=== PATIENT | female | born 1950 | race Caucasian/White ===

== ENCOUNTER 2019-03-16 15:35 | Inpatient (IN) | payer OTHER ==
[~2019-03-16] VITALS: Ht 185.4 cm; Wt 68.0 kg
[2019-03-16 17:56] VITALS: BP 122/50
[2019-03-16 19:59] VITALS: BP 116/53
[2019-03-17 03:25] VITALS: BP 103/40
--- NOTE | 2019-03-17 06:06 | NUR ---
PATIENT ARRIVED ON DAYS FROM ED. PATIENT ALERT AND ORIENTED X4. BEDREST. PATIENT HS MULTIPLE PRESSURE WOUNDS. PICTURES TAKEN BY DAYS. DENIES PAIN. SLEPT OFF AND ON DURING NIGHT.
[2019-03-17 06:33] LABS: HEMATOCRIT 20.6 % (37.0-47.0); MCH 30.9 pg (26.0-34.0); MCHC 34.1 g/dL (28.0-37.0); MCV 90.8 fL (80.0-100.0); RBC 2.27 mil/uL (4.20-5.00); RDW 16.7 % (10.5-14.5); WBC 5.3 thou/uL (4.0-11.0)
[2019-03-17 06:44] LABS: CALCIUM 8.2 mg/dL (8.5-10.1); CREATININE 0.5 mg/dL (0.6-1.0); POTASSIUM 3.5 mmol/L (3.5-5.1)
[2019-03-17 07:30] VITALS: BP 126/52
[2019-03-17 16:19] VITALS: BP 128/58
--- NOTE | 2019-03-17 16:34 | NUR ---
ASSUMED PATIENT CARE AT 0700. A/0 X4. PLEASEANT. C/O COCCYX PAIN. DRESSING CHANGED PER ORDER. ASSISTED PATINE TURN. LOW AIR LOSS PUMP ORDER. CALLED [facility] THERE TIMES TO UPDATE HOME MEDS BUT NO ONE ANSWER THE PHONE. VSS. PATIENT ABLE TO FINISH 50% MEAL EACH TIME. SLOWLY TOWARDS POC GOALS.
[2019-03-17 19:20] VITALS: BP 114/50
--- NOTE | 2019-03-17 22:04 | NUR ---
PATIENT IS REFUSING LOW AIR FLOW MATTRESS PUMP DUE TO PROBLEMS WITH COMFORT WITH THE BED DURING PAST STAYS IN HOSPITAL. PATIENT STATES THAT SHE "CAN'T GET COMFORTABLE" IN THE BED WHEN IT IS OPERATING. PATIENT IS FULLY ORIENTED AND REFUSING DESPITE NURSES OFFER TO TRY AND WORK TO FIND COMFORTABLE POSITION IN BED WITH WORKING AIR MATTRESS PUMP. HOUSE SUP NOTIFIED WITH NURSE INSTRUCTED TO DC ORDER, PUT PUMP IN DIRTY UTILITY, AND WRITE THIS NOTE.
--- NOTE | 2019-03-18 02:57 | NUR ---
PATIENT IS PROGRESSING IN HER CARE PLAN. VITAL SIGNS STABLE WITH PATIENT HAVING NO COMPLAINTS OF NAUSEA. PATIENT DID COMPLAIN OF PAIN IN BUTTOCKS/LOWER BACK WHICH WAS TREATED EFFECTIVELY BY NURSE THROUGH MEDICATION AND NON PHARMACOLOGICAL INTERVENTION. PATIENT IS FULLY ORIENTED AND ABLE TO PARTICIPATE IN CARE AND CALL APPROPRIATELY FOR REQUESTS. PATIENTS SACRAL WOUND TO BE CHANGED EARLY THIS MORNING PER HER REQUEST. FREQUENT TURNS PROVIDED WITH SKIN PROTECTION. ADEQUATE OUTPUT THROUGH FRANKLIN CATHETER. CONTINUE PLAN OF CARE.
[2019-03-18 03:15] VITALS: BP 137/73
[2019-03-18 04:43] LABS: HEMATOCRIT 21.1 % (37.0-47.0); HEMOGLOBIN 7.2 gm/dL (12.0-15.0); MCH 30.9 pg (26.0-34.0); MCHC 34.3 g/dL (28.0-37.0); MCV 90.1 fL (80.0-100.0); RBC 2.34 mil/uL (4.20-5.00); RDW 16.7 % (10.5-14.5); WBC 5.6 thou/uL (4.0-11.0)
[2019-03-18 04:58] LABS: CREATININE 0.6 mg/dL (0.6-1.0); MAGNESIUM 1.5 mg/dL (1.8-2.4); POTASSIUM 3.3 mmol/L (3.5-5.1)
[2019-03-18 07:44] VITALS: BP 125/65
--- NOTE | 2019-03-18 11:44 | HC ---
[facility] [place] [address] [place] [address] CONSULTATION Name: YULISA WILLIS Room #: 353-P ADM IN M.R.#: [id number] Admission: 03/16/19 ������������������ Attend Phys: Denisa Tomlinson MD Discharge: ������������������ Date of : 52 Report #: [id number] THIS REPORT FOR: //name// CC: Mihir Tomlinson DATE OF SERVICE: 03/17/2019 WOUND CARE CONSULTATION LOCATION: [facility]. REASON FOR CONSULTATION: Sacral stage 4 pressure ulcer, right heel ulcer, left posterior leg ulcer in a chronically debilitated woman with severe protein-calorie malnutrition and debility. HISTORY OF PRESENT ILLNESS: The patient is a 68-year-old woman, well known to our Wound Care Service from past encounters. She is currently admitted to [facility] for urinary tract infection with complications of her feeding tube, which became clogged. She was on antibiotics for her urinary tract infection. The patient has chronic debility and immobility and developed a large sacral stage 4 pressure ulcer and pressure ulcer of her left posterior leg and her heel. Wound Care is consulted. PAST MEDICAL HISTORY: 1. Active tobaccoism. 2. Recent hyponatremia. 3. Chronic urinary tract infection. 4. Sacral stage 4 pressure ulcer, chronic, with diverting colostomy. 5. History of pulmonary embolism, on Eliquis. 6. History of depression. 7. Debility, weakness, immobility. PAST SURGICAL HISTORY: Colostomy, cholecystectomy, PEG tube, prior incision and drainage of heel wounds. ALLERGIES: SILVADENE, SULFABENZAMIDE. PHYSICAL EXAMINATION: GENERAL: Shows a chronically ill-appearing woman, who is alert and conversant. HEENT: Mucous membranes are moist. NECK: Supple. ABDOMEN: Shows presence of a colostomy, a well-healed midline incision and a PEG tube, which is clogged. BACK: Examination of the patient's back shows a large chronic-appearing sacral [facility] [address] [place] [address] CONSULTATION Name: YULISA WILLIS Room #: 353-P [facility] IN [facility].#: [id number] Admission: 03/16/19 ������������������ Attend Phys: Denisa Tomlinson MD Discharge: ������������������ Date of : 52 Report #: [id number] stage 4 pressure ulcer with hypergranulation tissue. This measured approximately 18 cm x 15 cm x 1 cm deep. EXTREMITIES: Examination of the lower extremities shows an almost healed stage 2 pressure ulcer of the right heel and an almost healed pressure ulcer of the left posterior leg measuring approximately 10 cm long x 2 cm wide, which is almost completely epithelialized. IMPRESSION: 1. Urinary tract infection, now being actively treated. 2. Complications of percutaneous endoscopic gastrostomy tube clogged, will need to be opened. 3. Severe protein-calorie malnutrition. 4. History of pulmonary embolism, on Eliquis. 5. Severe protein-calorie malnutrition, percutaneous endoscopic gastrostomy tube feedings. 6. Tobaccoism, active. 7. Sacral stage 4 pressure ulcer, chronic. 8. Right heel ulcer. 9. Pressure ulcer of left posterior leg. PLAN: Simple foam border on the right heel, Optifoam dressing, ABD, Kerlix wrap on the left leg. Quarter-strength Dakin's pack twice daily to the sacral wound. Offload with low air loss mattress. Maximize nutrition with PEG tube feeding. Wound care team will follow. ��������������������������������������������� <ELECTRONICALLY SIGNED> ���������������������������������������� By: Lacho Ashraf MD ��������������������������������������������� 03/18/19 [id number] Lacho Ashraf MD /nt
[2019-03-18 16:13] VITALS: BP 108/47
--- NOTE | 2019-03-18 17:30 | NUR ---
ASSUMED PATIENT CARE AT 0700. PLEASANT. A/0 X4. ASSISTED PATIENT TURN. DRESSING CHANGED PER ORDER. PATIENT REFUSED PRAFO BOOT. WILL NPO AFTER MIDNIGHT TO HAVE PEG TUBE REPLACE IN AM. PATIENT ABLE TO FINISH 100% MEAL EACH TIME. PROGRESSING TOWARDS POC GOALS,
[2019-03-18 19:47] VITALS: BP 141/74
[2019-03-19 04:00] VITALS: BP 128/62
--- NOTE | 2019-03-19 04:44 | NUR ---
PATIENT IS PROGRESSING IN HER CARE PLAN. VITAL SIGNS STABLE WITH PATIENT HAVING NO COMPLAINTS OF NAUSEA. PATIENT DID COMPLAIN OF PAIN IN LOWER BACK/SACRUM WHICH WAS TREATED EFFECTIVELY WITH MEDICATION AND REPOSITIONING. PATIENT IS FULLY ALERT AND ORIENTED AND ABLE TO PARTICIPATE IN CARE AND CALL APPROPRIATELY FOR NEEDS. WOUND CARE PER ORDER WITH PATIENT TURNED FREQUENTLY. ADEQUATE URINARY OUTPUT THROUGH FRANKLIN. PATIENT HAS BEEN NPO SINCE MIDNIGHT IN ANTICIPATION OF TODAYS PROCEDURE. CONTINUE PLAN OF CARE.
[2019-03-19 05:32] LABS: HEMATOCRIT 21.4 % (37.0-47.0); HEMOGLOBIN 7.1 gm/dL (12.0-15.0); MCH 30.3 pg (26.0-34.0); MCHC 33.3 g/dL (28.0-37.0); MCV 90.9 fL (80.0-100.0); RBC 2.36 mil/uL (4.20-5.00); RDW 16.7 % (10.5-14.5); WBC 6.2 thou/uL (4.0-11.0)
[2019-03-19 05:54] LABS: CALCIUM 8.4 mg/dL (8.5-10.1); CREATININE 0.7 mg/dL (0.6-1.0); POTASSIUM 4.2 mmol/L (3.5-5.1)
[2019-03-19 07:30] VITALS: BP 113/57
[2019-03-19 08:06] LABS: PROTIME 10.7 Seconds (9.3-11.4)
[2019-03-19 09:36] LABS: % SATURATION 24 % (20-39); IRON 28 ug/dL (50-170); TIBC 119 ug/dL (250-450)
[2019-03-19 10:03] LABS: FOLIC ACID 15.1 ng/mL (8.6-58.9)
--- NOTE | 2019-03-19 14:12 | NUR ---
INITIAL ASSESSMENT: Received consult for discharge planning. GIFTY reviewed chart and spoke with nursing and attending physician. Pt was transferred to [facility] from [facility] due to insurance reasons. GI and surgery consulted. Pt to have calorie count to determine if peg tube will be removed or replaced. GIFTY met with pt at bedside. Introduced role of SW. Pt is alert/orientated x 4. Pt reports she has been at [facility] since December of this year. Pt's plan is to return to [facility] and resume her therapy with the goal of returning home. Pt normally lives at home with her . Pt's dtr and son-in-law and their children live next door to pt and are able to assist as needed. Pt uses a cane for ambulation. Pt is aware of possible discharge tomorrow. GIFTY faxed clinical info to [facility] at [facility] and left voice message to notify of info being sent. [facility] may need to get a new authorization for pt to return to their skilled unit. GIFTY is following to assist as needed with discharge planning.
[2019-03-19 15:39] VITALS: BP 113/58
--- NOTE | 2019-03-19 18:01 | NUR ---
PT ALERT AND ORIENTED TIMES FOUR. VSS, 100%RA, PT C/O PAIN PRN MEDICATIONS GIVEN WITH GOOD RELEIF. DRESSING TO COCCYX CHANGED, FRANKLIN TO DD, PT TURNED FREQUENTLY THIS SHIFT. PT REFUSED PRAFO BOOTS TO BLE TODAY. PT TOLERATES MEDS AND MEALS. PT NPO AFTER MIDNIGHT FOR EGD IN THE MORNING. PT SLOWLY PROGRESSING TOWRADS POC GOALS.
[2019-03-19 19:28] VITALS: BP 130/81
[2019-03-19 21:19] VITALS: BP 136/66
--- NOTE | 2019-03-20 01:54 | NUR ---
PT ARRIVED ON THE UNIT @2118 FROM [facility]. A&OX4 AT THIS SHIFT. WITH C/O LOWER BACK PAIN OF 7 PAIN MED GIVEN FOR MANAGEMENT. WOUND DRESSING ON SACRUM CHANGED PER ORDERS. PT PLACED ON NPO AT MIDNIGHT FOR PEG TUBE REMOVAL/PLACEMENT TOMORROW. BOTH FOOT ELEVATED ON PILLOWS AND PT TURNED FREQUENTLY. COLOSTOMY BAG AND FOLLEY INTACT. POC DONE, BED IN LOW POSITION AND CALL LIGHT WITHIN REACH WILL CONTINUE TO MONITOR.
[2019-03-20 05:31] VITALS: BP 152/79
[2019-03-20 07:54] VITALS: BP 121/61
--- NOTE | 2019-03-20 09:41 | NUR ---
Nutrition: day 1 calorie count was pt reported as no records kept. Was NPO at breakfast and ate lunch and dinner 03/20. PO intake met 41-44% of needs. Dislikes ensure enlive, trialing other supplements. Due to pt report of inability to gain weight despite po plus nocturnal tube feeds and severity of wounds (stage 3-4), do recommend PEG tube replacement and resuming nocturnal tube feeds. REC jevity 1.5 to run 50 mL/hr x 12 hrs to start.
[2019-03-20] MEDS ORDERED: ELIQUIS2.5 MG PO (10:22)
[2019-03-20] MEDS ORDERED: PACERONE 200 M200 M1 PO (10:22)
[2019-03-20] MEDS ORDERED: KEFLEX250 M1 PO (10:25)
[2019-03-20 13:59] VITALS: BP 121/61
--- NOTE | 2019-03-20 15:20 | NUR ---
Patient to dc today to [facility]. YASMINE sent dc paperwork and wound notes, wound consultations and dietary rec. notes to Anum at [facility]. Anum set up stretcher for transportation today pickup 5 to 530 pm. YASMINE notified unit and sw. Correct fax number for facility is [phone]
[2019-03-20 16:30] VITALS: BP 124/61
--- NOTE | 2019-03-20 17:58 | NUR ---
Assumed pt care this am received her on NPO for removal and placement of PEG tube. Procedure was done in the am, tube was declogged. Pt resumed a regular diet this was well tolerated, supplements were taken as well. Colostomy care was done and appliance and bag changed. Wound care , dressing changed and photos taken. FC draining light yellow urine. Pain releived by medication. POC followed. DC to [facility], report called in. IV removed. Pt is now dc.
== END 2019-03-20 18:16 | DRG 871 ==
LOC: 3W 15:35 → 4W 03-19 21:15
PROVIDERS: Internal Medicine; Nurse Practitioner; Radiology Vascular & Interventional Radiology; ADMIT Hospitalist
PROC: 0D20XUZ Change Feeding Device in Upper Intestinal Tract, External Approach (ICD-10-PCS; principal; 2019-03-20)
DX: A41.51 Sepsis due to Escherichia coli [E. coli] (principal); L89.623 Pressure ulcer of left heel, stage 3; L89.614 Pressure ulcer of right heel, stage 4; L89.154 Pressure ulcer of sacral region, stage 4; K85.90 Acute pancreatitis without necrosis or infection, unspecified; E43 Unspecified severe protein-calorie malnutrition; N39.0 Urinary tract infection, site not specified; G93.40 Encephalopathy, unspecified; E87.1 Hypo-osmolality and hyponatremia; Z68.1 Body mass index [BMI] 19.9 or less, adult; D61.818 Other pancytopenia; K92.2 Gastrointestinal hemorrhage, unspecified; K82.0 Obstruction of gallbladder; K83.09 Other cholangitis; T85.518A Breakdown (mechanical) of other gastrointestinal prosthetic devices, implants and grafts, initial encounter; E87.6 Hypokalemia; E83.42 Hypomagnesemia; I25.10 Atherosclerotic heart disease of native coronary artery without angina pectoris; R33.9 Retention of urine, unspecified; F17.210 Nicotine dependence, cigarettes, uncomplicated; Y83.8 Other surgical procedures as the cause of abnormal reaction of the patient, or of later complication, without mention of misadventure at the time of the procedure; I10 Essential (primary) hypertension; F32.9 Major depressive disorder, single episode, unspecified; Z86.711 Personal history of pulmonary embolism; Z90.49 Acquired absence of other specified parts of digestive tract; Z88.2 Allergy status to sulfonamides; Z88.8 Allergy status to other drugs, medicaments and biological substances; Y92.89 Other specified places as the place of occurrence of the external cause; Z74.01 Bed confinement status
CPT/HCPCS: 10047; 10779